=== PATIENT | female | born 1960 | race Caucasian/White ===

== ENCOUNTER 2019-09-15 07:00 | Outpatient (RCR) | payer OTHER, SELFPAY ==
--- NOTE | 2019-09-10 09:54 | HMH.PTOPEV ---
PT Outpatient Evaluation Rehab PT Outpatient Evaluation Start: 09/10/19 08:33 Freq: Status: Active Protocol: Document 09/10/19 08:33 [email or web address] (Rec: 09/10/19 09:53 [email or web address] [id number]) Electronically Signed By Donavan Andino, PT 09/10/19 08:33 Outpatient Therapy Subjective History Subjective History Pt is a 59 year old female who presents to outpatient PT with complaints of subacute and constant L posterior cervical P! of insidious onset for 1 month. Pt. reports, I think it's because I sit at my computer all day at work. Pt. reports symptom relief with a MHP, but denies symptom relief with Ibuprofen. Pt. reports no symptom relief with her Kenalog shot, but states she just had it yesterday(09/09/19 ). Pt. denies symptoms into LUE nor R cervical/RUE regions . Pt. also denies having diagnostic imaging for current pathology. 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 Current medications include Ibuprofen, Bystolic, and Prilosec. PMH includes HTN . Chief Complaint Pain Symptom Type Ache,Dull Symptoms Relieved By Heat Symptoms Aggravated By Sitting Prior Functional Limitations None Current Functional Limitations Lifting,Desk Work/Reading, Sleeping,Recreation Activity Symptom Description Constant and Continuous Level of pain today (0-10) 6 Pain scale - at its best (0-10) 3 Pain scale - at its worst (0-10) 8 Cervical Eval Palpation Cervical Muscles L CT Junction Cervical/Thoracic Palpation Findings Tenderness Posture Head/C-Spine Posture Sitting Position Neutral Position Head/C-Spine Posture Standing Position Neutral Position Flexibility Deficits Upper Trapezius Muscle Length (L) Mild Tightness Levaetor Scapulae Muscle Length (L) Severe Tightness Passive Joint Mobility Cervical PIVM Dec: R C4/5 L C4/5 R C5/6 L C5/6 R C6/7 L C6/7
== END 2019-10-06 13:00 | disposition home or self-care (01) ==
LOC: PT.CARL 07:00
PROVIDERS: Visit Provider Internal Medicine Adolescent Medicine
DX: M54.2 Cervicalgia (principal); S46.811A Strain of other muscles, fascia and tendons at shoulder and upper arm level, right arm, initial encounter
CPT/HCPCS: 97010; 97014; 97033; 97035; 97110; 97140; 97163; G0283

== ENCOUNTER → 2020-07-03 15:18 | Outpatient (CLI) | payer OTHER, SELFPAY | PROVIDERS: PCP Internal Medicine Adolescent Medicine; Visit Provider Internal Medicine Adolescent Medicine | DX: Z03.818 Encounter for observation for suspected exposure to other biological agents ruled out (principal) | CPT/HCPCS: U0003 ==

== ENCOUNTER → 2020-12-22 14:55 | Outpatient (CLI) | payer OTHER, SELFPAY ==
--- NOTE | 2020-12-22 14:57 | MM_ITS ---
PROCEDURE: MM DIG SCREENING MAMM BI W/CAD Digital Breast Tomosynthesis Included CLINICAL INDICATION: SCREENING There is no personal or family history of breast cancer. There has been a previous biopsy left breast for benign disease. COMPARISON: MG DIGMAMMS MAMMOGRAM SCREEN-PILLAR WORKER N/C from 12/14/2005 MG DIGMAMMS MAMMOGRAM SCREEN-PILLAR WORKER N/C from 02/07/2007 MG DMSB DIG MAMM-SCREEN ANICETO from 05/17/2015 TECHNIQUE: Standard CC and MLO images and 3D Tomosynthesis was obtained. R2 CAD reviewed. FINDINGS: Moderate diffuse fibroglandular densities are seen in the central portions of both breasts and the findings are bilateral and symmetrical. There is moderate arterial calcification in each breast, there is a mole marker right breast there is no suspicious lesion in either breast and no suspicious microcalcifications. IMPRESSION: Moderate breast density with no suspicious lesions seen BI-RAD Category: 2 Benign Finding(s) FOLLOW-UP: 1YR 1 Year Follow-up (A letter has been sent to the patient regarding results of the study.) Dictated by: Dr. Juan Godoy MD 12/29/2020 10:16 Dr. Juan Godoy MD in [place] 12/29/2020 10:16
== END ==
PROVIDERS: PCP Internal Medicine Adolescent Medicine; Visit Provider Internal Medicine Adolescent Medicine
DX: Z12.31 Encounter for screening mammogram for malignant neoplasm of breast (principal)
CPT/HCPCS: 77063; 77067

== ENCOUNTER → 2021-06-03 09:29 | Outpatient (CLI) | payer OTHER, SELFPAY | PROVIDERS: Visit Provider Internal Medicine Adolescent Medicine | DX: R30.0 Dysuria (principal) | CPT/HCPCS: 87086; 87088; 87186 ==

== ENCOUNTER → 2022-12-08 17:19 | Outpatient (CLI) | payer OTHER, SELFPAY | PROVIDERS: PCP Internal Medicine Adolescent Medicine; Visit Provider Nurse Practitioner Family | DX: R55 Syncope and collapse (principal) | CPT/HCPCS: 93225; 93226 ==

== ENCOUNTER → 2022-12-15 10:30 | Outpatient (CLI) | payer OTHER, SELFPAY ==
--- NOTE | 2022-12-15 | CA_ITS ---
APPROVED REPORT EXAM: Comprehensive 2D, Doppler, and color-flow Echocardiogram Residential Roofer: Mere Harris, RT(R) Ht: 5 ft 4 in Wt: 137lbs BSA: 1.67 BP: 125/74 mmHg Indications: syncope, DAVIS, HTN, ordered as a bubble study Echo Enhancing Agent Indication: Rule out Shunt Agent(s) / Amount(s) Used: Agitated Saline 15 cc 2D Dimensions LVOT 1.89 cm (M/F) 1.5-2.5 M-Mode Dimensions RVDd 2.85 cm (0.9-2.6) LA Diam 2.70 cm (1.9-4.0) LVDd 3.66 cm (3.5-5.7) Ao Diam 2.14 cm (2.0-3.7) LVDs 2.81 cm (3.5-5.7) IVSd 0.90 cm (0.6-1.1) PWd 0.94 cm (0.6-1.1) EF (Teich) 47.30% FS 23.20% EDV (Teich) 56.60 mL ESV (Teich) 29.80 mL LV Diastology E Decel Time 163.00 (160-240 msec) E/A Ratio 0.8 MED E' 6.50 (< 7 cm/sec) E'/MED E' Ratio 8.83 (>14) LAT E' 8.30 (<10 cm/sec) E/LAT E' Ratio 6.92 (>14) Mitral Valve MV E Max Francesco. 57.00 (40-130 cm/s) MV A Velocity 72.00 (40-130 cm/s) E/A Ratio 0.80 MV Decel. Time 163.00 (160-240 ms) MV PHT 48.00 ms Left Ventricle Left atrium is mildly enlarged, left ventricle is normal size, estimated ejection fraction 55% with no regional wall motion abnormality, grade 1 diastolic dysfunction seen without tissue Doppler evidence of raise left atrial pressure. Right Ventricle Right atrium and right ventricle are mildly enlarged with normal contractility. Atria Intra-atrial septum is intact, there is no flow across the interatrial septum, agitated saline contrast study did not identify intracardiac shunt. Aortic Valve Aortic valve is minimally thickened and fibrosed there is no aortic stenosis or aortic insufficiency. Mitral Valve Mitral valve is grossly normal, there is trace mitral regurgitation. Tricuspid Valve Tricuspid valve is grossly normal, there is trace tricuspid regurgitation, tricuspid regurgitation jet velocity is inadequate for calculation of the right ventricular systolic pressure. Pulmonic Valve Pulmonic valve is poorly visualized. Great Vessels Aortic root is normal size. Inferior vena cava is poorly visualized. Pericardium No significant pericardial effusion noted. Conclusion 1. Mildly enlarged left atrium, normal left ventricular size mild concentric left ventricular hypertrophy, estimated ejection fraction 55% with no regional wall motion abnormality, grade 1 diastolic dysfunction seen without tissue Doppler evidence of raise left atrial pressure. 2. Mildly enlarged right ventricle with normal contractility. 3. Trace mitral and tricuspid regurgitation. 4. Agitated saline contrast study did not identify intracardiac shunt. Electronically signed by : Yunier Park MD 12/15/2022 16:35:07
== END ==
PROVIDERS: PCP Internal Medicine Adolescent Medicine; Visit Provider Nurse Practitioner Family
DX: R55 Syncope and collapse (principal)
CPT/HCPCS: 93306

== ENCOUNTER 2024-08-14 08:47 | Outpatient (CLI) | payer OTHER, SELFPAY ==
[2024-08-14 08:57] VITALS: BMI 23.9
[2024-08-14 09:00] VITALS: BP 120/80; PULSE 81; RESP 18; O2SAT 99
[2024-08-14] MEDS: ONDANSETRON 4MG/2ML VIAL 4 MG (09:15)
[2024-08-14] MEDS: 0.9 % SODIUM CHLORIDE 1000ML 1,000 ML 999 ML IV (09:15)
[2024-08-14 09:51] LABS: Basophils # 0.1 K/mm3 (0-0.2); Basophils % 0.6 % (0.1-2.0); Eosinophils # 0.2 K/mm3 (0.0-0.4); Eosinophils % 1.7 % (0.1-12.0); Hematocrit 46.3 % (37.0-47.0); Hemoglobin 16.2 g/dL (12.2-16.2); Lymphocytes # 1.5 K/mm3 (0.7-4.5); Lymphocytes % 13.5 % (10-50); Mean Corpuscular HGB Conc 35.1 g/dL (31.8-35.4); Mean Corpuscular Hemoglobin 30.7 pg (27.0-31.2); Mean Corpuscular Volume 87.3 fl (81-99); Mean Platelet Volume 9.6 fl (7.4-10.4); Monocytes # 0.5 K/mm3 (0.1-1.0); Monocytes % 4.6 % (1.7-9.3); Neutrophils # 8.6 K/mm3 (1.8-7.8); Neutrophils % 79.6 % (37.0-80.0); Platelet Count 222 K/mm3 (142-424); Red Cell Distribution Width 13.1 % (11.5-17.5); White Blood Count 10.8 K/mm3 (4.8-10.8)
[2024-08-14 09:59] LABS: Albumin Level 5.1 g/dl (3.5-5.0); Chloride 107 mmol/L (98-107); Potassium 3.5 mmoL/L (3.5-5.1); Sodium 143 mmol/L (136-145)
[2024-08-14 10:01] LABS: Amylase 71 U/L (30-110); Lipase 250 U/L (23-300)
[2024-08-14 10:02] LABS: Alanine Aminotransferase 26 U/L (12-78); Albumin/Globulin Ratio 1.2 (1.1-1.8); Alkaline Phosphatase 87 U/L (38-126); Anion Gap 18.5 mEq/L (5-15); Aspartate Amino Transferase 36 U/L (14-36); Bilirubin,Total 1.1 mg/dl (0.2-1.3); Blood Urea Nitrogen 10 mg/dl (7-17); Calcium 9.8 mg/dl (8.4-10.2); Carbon Dioxide 21 mmol/L (22.0-30.0); Creatinine Clearance Estimated 56 mL/min (50-200); Estimated Glomerular Filt Rate 63 ml/min (>60); GFR (African American) 77 ML/MIN (>60); Globulin 4.1 g/dL (1.3-3.2); Glucose 97 mg/dl (74-100); Total Protein,Serum 9.2 g/dl (6.3-8.2)
[2024-08-14 10:45] VITALS: BP 124/82; PULSE 82; RESP 18; O2SAT 99
[2024-08-14 13:30] LABS: Adenovirus F 40/41, stool Not Detected (NotDetected); Astrovirus Not Detected (NotDetected); Campylobacter Not Detected (NotDetected); Clostridium Difficile A/B, PCR Not Detected (NotDetected); Cryptosporidium Not Detected (NotDetected); Cyclospora Cayetanesis Not Detected (NotDetected); Entamoeba histolytica Not Detected (NotDetected); Enteroaggregative E coli Not Detected (NotDetected); Enteropathogenic E coli Not Detected (NotDetected); Enterotoxigenic E coli Not Detected (NotDetected); Giardia lamblia Not Detected (NotDetected); Norovirus Not Detected (NotDetected); Plesimonas Shigalloides, PCR Not Detected (NotDetected); Rotavirus A Not Detected (NotDetected); Salmonella, PCR Not Detected (NotDetected); Sapovirus Not Detected (NotDetected); Shiga-like toxin E coli Not Detected (NotDetected); Shigella Enterovasive E coli Not Detected (NotDetected); Vibrio Cholerae Not Detected (NotDetected); Vibrio, PCR Not Detected (NotDetected); Yersinia Entercolitica, PCR Not Detected (NotDetected)
== END 2024-08-14 11:00 | disposition home or self-care (01) ==
LOC: INF 08:49
PROVIDERS: PCP Internal Medicine Adolescent Medicine; Visit Provider Nurse Practitioner Family
DX: K52.9 Noninfective gastroenteritis and colitis, unspecified (principal); E86.0 Dehydration
CPT/HCPCS: 80053; 82150; 83690; 85025; 87507; 96360; 96361; 96374; 96375; J2405; J7030

== ENCOUNTER 2025-05-29 07:28 | Day surgery (SDC) | payer BC, SELFPAY ==
[2025-05-28 09:10] VITALS: BMI 24.7
[2025-05-29] VITALS (9 sets, daily range): BP systolic 133–150; BP diastolic 71–87; PULSE 72–85; RESP 12–18; TEMP 36.3–36.5; O2SAT 94–96
[2025-05-29] MEDS: 0.9 % SODIUM CHLORIDE 1000ML 1,000 ML 25 ML IV (07:49)
--- NOTE | 2025-05-29 08:03 | EXP.ANES.CKL ---
[facility] Disclaimer: The information contained in this section may have been updated after the patient was seen, as this information can be updated by other users. Medical History Anxiety GERD (gastroesophageal reflux disease) Cataract Hypertension Surgical History History of cataract extraction Family History Other No significant family history Social History Smoking Status: Never smoker alcohol intake: never substance use type: denies use current occupational status: employed Travel in the last 8 weeks?: None [facility] Anesthesia Checklist Patient Identification Patient Identification: Arm Band Structural Data Admitted From: Home Planned Operative Procedure/s: Excision of Left Shoulder Mass Consent for Planned Operative Procedure(s) Verified: Yes Verified Documents: Surgical Consent and History and Physical NPO Status Verified Time NPO: 00:00 Additional verifications Anesthesia Reactions: No Hx Blood Transfusions: No Blood Transfusion Reaction: No Airway Assessment Mallampati Score:: Class II C-Spine Mobility Assessed: Yes TMJ Mobility Assessed: Yes Dentition: Good Dentition Neurological Assessment Level of Consciousness: Awake, Alert and Appropriate Anesthesia Plan Anesthesia Risk discussed: Yes Anesthesia Plan: Verified ASA Class: II Anesthesia Type: General
--- NOTE | 2025-05-29 09:02 | P.OP_ITS ---
Date of procedure: 05/29/25 Pre-op Diagnosis:: 4 cm subcutaneous mass along apex of left shoulder Post-op Diagnosis:: Same Procedure performed:: Excision of 4 cm left shoulder apex mass Surgeon:: Clint Hawley MD INVESTIGATIONS DIRECTOR:: Von Del Cid Anesthesia: local and LMA Estimated blood loss (mL): 10 Operative findings:: Lesion excised in toto Operative note:: After informed consent was obtained the patient was taken to the operating room and placed in the supine position. General anesthesia with laryngeal mask airway was achieved. The left shoulder apex region was infiltrated with 1% lidocaine. An incision was made overlying the apex of the lesion. A combination of blunt dissection, sharp dissection, and electrocautery was utilized to transect through the deeper subcutaneous tissue. The lesion was excised in toto and passed off for pathologic evaluation. Electrocautery was utilized to achieve hemostasis. The deep subcutaneous tissue was reapproximated with interrupted Vicryl. Skin was then reapproximated with 4-0 Monocryl in an interrupted subcuticular manner. Steri-Strips were applied and the patient was transferred to recovery in stable condition. Condition: stable Disposition: PACU Specimens:: Left shoulder apex subcutaneous mass Complications:: No immediate
[2025-05-29] MEDS: CEFAZOLIN 2GM VIAL 2 GM (09:15)
[2025-05-29] MEDS: LIDOCAINE 1% 20ML MDV 20 ML (09:28)
--- NOTE | 2025-05-29 10:02 | EXP.ANES.I ---
[facility] Anesthesia Record Part I Anesthesia Record I Intake, IV Amount: 850 Hydration: Adequate Estimated blood loss (mL): 10 Urine output (mL): 0 Blood Products used (#): none Blood Pressure: 133/76 SaO2: 94 Pulse Rate: 78 Airway Patency: Patent Respiratory Rate: 12 Temperature: 97.3 F Patient is:: Drowsy and Stable Stable to PACU at:: 09:52
--- NOTE | 2025-05-29 10:38 | EXP.ANES.II ---
[facility] Anesthesia Record Part II Anesthesia Record Part II Discharge Time: 10:22 Destination: Surgical Day Care (OP Surgery) PACU nurse assessment reviewed?: Yes Patient Condition:: Good Anesthesia Complications:: None Swallowing reflex intact?: Yes Airway Patency: Patent Cyanosis?: No Blood Pressure: 150/75 SaO2: 95 Respiratory Rate: 12 Pulse Rate: 83 Temperature: 97.3 F Mental Status: Alert & Oriented Pain level:: 0 Nausea and/or vomitting:: None Intake, IV Amount: 0 Hydration: Adequate
--- NOTE | 2025-06-01 08:21 | P.PNANES_ITS ---
[facility] Anesthesia Record Part II Anesthesia Record Part II Discharge Time: 10:53 Destination: Surgical Day Care (OP Surgery) PACU nurse assessment reviewed?: Yes Patient Condition:: Good Anesthesia Complications:: None Swallowing reflex intact?: Yes Airway Patency: Patent Cyanosis?: No Blood Pressure: 148/79 SaO2: 95 Respiratory Rate: 18 Pulse Rate: 80 Temperature: 97.3 F Mental Status: Alert & Oriented Pain level:: 0 Nausea and/or vomitting:: None Intake, IV Amount: 0 Hydration: Adequate
[2025-06-01 08:22] VITALS: BP 148/79; PULSE 80; RESP 18; TEMP 36.3; O2SAT 95
== END 2025-05-29 11:20 | disposition home or self-care (01) ==
PROVIDERS: PCP Internal Medicine Adolescent Medicine; Visit Provider Surgery
PROC: (CPT 23071; principal; 2025-05-29 09:00)
DX: D17.22 Benign lipomatous neoplasm of skin and subcutaneous tissue of left arm (principal); K21.9 Gastro-esophageal reflux disease without esophagitis; I10 Essential (primary) hypertension; Z79.899 Other long term (current) drug therapy
CPT/HCPCS: 23071; 96374; J0690; J1100; J2003; J2250; J2405; J2704; J3010; J7030